=== PATIENT | female | born 1965 ===

== ENCOUNTER 2017-05-24 08:21 | Day surgery (SDC) | payer MEDICAID ==
[2017-05-24] MEDS ORDERED: LR 1,000 ML IV ONE (09:10)
--- NOTE | 2017-05-24 09:29 | PDANEPAE ---
ANE History of Present Illness 51 yo f here for screening colo ANE Past Medical History - Cardiovascular History Hx Hypertension: No Hx Arrhythmias: No Hx Chest Pain: No Hx Coronary Artery / Peripheral Vascular Disease: No Hx CHF / Valvular Disease: No Hx Palpitations: No - Pulmonary History Hx COPD: No Hx Asthma/Reactive Airway Disease: No Hx Recent Upper Respiratory Infection: No Hx Oxygen in Use at Home: No Hx Sleep Apnea: No Sleep Apnea Screening Result - Last Documented: Negative - Neurologic History Hx Cerebrovascular Accident: No Hx Seizures: No Hx Dementia: No - Endocrine History Hx Diabetes: No - Renal History Hx Renal Disorders: No - Liver History Hx Hepatic Disorders: No - Neurological & Psychiatric Hx Hx Neurological and Psychiatric Disorders: No - Cancer History Hx Cancer: No - Congenital Disorder History Hx Congenital Disorders: No - GI History Hx Gastrointestinal Disorders: No - Other Health History Other Health History: NEG - Chronic Pain History Chronic Pain: No - Surgical History Prior Surgeries: NEG ANE Review of Systems - Exercise capacity Exercise capacity: >=4 METS METS (RN): 5 METS ANE Patient History - Allergies Allergies/Adverse Reactions: No Known Allergies Allergy (Unverified 05/10/17 15:01) - Home Medications Home medications: home medication list seen and reviewed Home Medications: Herbal Drugs DAILY 05/10/17 [Last Taken Unknown] - NPO status NPO Status: no food or drink >8 hours NPO Since - Liquids (Date): 05/23/17 NPO Since - Liquids (Time): 07:00 NPO Since - Solids (Date): 05/23/17 NPO Since - Solids (Time): 09:00 - Anes Hx Anes Hx: no prior problems - Smoking Hx Smoking Status: Never smoked - Alcohol Use Alcohol Use: Rarely - Family Anes Hx Family Anes Hx: none Family Hx Anesthesia Complications: NEG ANE Labs/Vital Signs - Vital Signs Blood Pressure: 111/67 Heart Rate: 55 Respiratory Rate: 16 O2 Sat (%): 100 Height: 167.64 cm Weight: 49.895 kg ANE Physical Exam - Airway Neck exam: FROM Mallampati Score: Class 2 Mouth exam: normal dental/mouth exam - Pulmonary Pulmonary: no respiratory distress, clear to auscultation - Cardiovascular Cardiovascular: regular rate and rhythym, no murmur, rub, or gallop - ASA Status ASA Status: I ANE Anesthesia Plan Anesthesia Plan: GA with mask Total IV Anesthesia: y
--- NOTE | 2017-05-24 10:02 | PDGENHP ---
History & Physical Chief Complaint: Needs screening colonoscopy Relevant Physical Exam: GEN: NAD. Cardiac: RRR. Lungs: CTA B. Abd: Soft, nt, nd
[2017-05-24] MEDS ORDERED: PROPOFOL/EMULSION 500 MG/50 ML BOTTLE IV ONE (10:06)
[2017-05-24] MEDS ORDERED: ACETAMINOPHEN 500 MG TAB PO PRN (10:10)
[2017-05-24] MEDS ORDERED: NALOXONE HCL 0.4 MG/ML INJ IVP PRN (10:10)
[2017-05-24] MEDS ORDERED: ONDANSETRON 4 MG/2 ML VIAL IVP PRN (10:10)
--- NOTE | 2017-05-24 10:42 | POSTOPPROG ---
Post Op Note Date of Operation: 05/24/17 Surgeon: Hubert Jung Pre-op Diagnosis: Screening colon cancer Post-op Diagnosis: Same Indication: Screening colon cancer Procedure: Colonoscopy with snare Findings: 5mm polyp removed from the sigmoid colon with snare Inf/Abcess present in the surg proc area at time of surgery?: No
[2017-05-24 10:52] VITALS: TEMP 97.5
[2017-05-24 11:45] VITALS: BP 98/56; PULSE 45; RESP 14; O2SAT 99
--- NOTE | 2017-05-24 11:55 | GPN ---
[f rep st] PROCEDURE NOTE PREPROCEDURE DIAGNOSIS: Screening colonoscopy. POSTPROCEDURE DIAGNOSIS: A 5 mm sigmoid colon polyp, status post removal with cold snare polypectom y. PROCEDURE: Colonoscopy with snare. MEDICATIONS: Monitored anesthesia care. INDICATIONS: The patient is a 51-year-old female here for screening colonoscopy. The risks and tierney efits of the procedure discussed with the patient and consent obtained. Risks include, but not limi arlene to, bleeding, perforation, and sedation. The patient is ASA class 1. DESCRIPTION OF PROCEDURE: The pediatric colonoscope was advanced into the terminal ileum, which sepideh ears normal. The ileocecal valve, appendiceal orifice, cecum ascending colon, hepatic flexure, nino sverse colon, splenic flexure, descending colon appeared normal. There was a 5 mm polyp in the sigm oid colon was removed using cold snare polypectomy. Despite vigorous irrigation, the site of the po lyp was not retrieved. The polyp appeared to be either a small adenomatous polyp or hyperplastic po lyp. Retroflexed views in the rectum were normal. IMPRESSION: Sigmoid colon polyps, status post removal. Otherwise, normal colonoscopy. RECOMMENDATIONS: 1. Advance diet as tolerated. 2. Discharge home with escort. 3. Continue current medications. 4. Repeat colonoscopy in 5 years. Thank you for allowing me to participate in the care your patient. Please do not hesitate to call w ith questions. /[id number]/MODL
--- NOTE | 2017-05-24 20:52 | POSTANESTH ---
Post Anesthetic Evaluation Cardiovascular Status: Normal, Stable, Similar to Pre-Op Cond Respiratory Status: Normal, Stable, Similar to Pre-op Cond. Level of Consciousness/Mental Status: Can Participate in Eval, Alert and Oriented Pain Control: Adequate, Prn Tx Ordered Nausea/Vomiting Control: Adequate, Prn Tx Ordered Complications Possibly Related to Anesthesia: None Noted
== END 2017-05-24 12:00 | disposition home or self-care (01) ==
LOC: FSGY 08:21
PROVIDERS: ATTEND Internal Medicine Gastroenterology
PROC: 0DBN8ZZ Excision of Sigmoid Colon, Via Natural or Artificial Opening Endoscopic (ICD-10-PCS; principal; 2017-05-24 10:00)
DX: Z12.11 Encounter for screening for malignant neoplasm of colon (principal); K63.5 Polyp of colon
CPT/HCPCS: J2704